=== PATIENT | male | born 1995 | race Caucasian/White ===

== ENCOUNTER 2017-08-24 20:58 | Emergency (ER) | payer OTHER ==
--- NOTE | 2017-08-24 21:24 | EDM.PDOC ---
ED HPI GENERAL MEDICAL PROBLEM - General Chief Complaint: Skin Complaint Stated Complaint: FINGER PAIN Time Seen by Provider: 08/24/17 21:11 Source of Information: Reports: Patient History Limitations: Reports: No Limitations - History of Present Illness INITIAL COMMENTS - FREE TEXT/NARRATIVE: Patient is a 22-year-old male presents ED complaining of frostbite to the right third, fourth, and fifth finger. 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 This occurred at approximately 4:30 this afternoon. Has developed a few blisters noted in between the third and fourth and fourth and fifth fingers. Slight numbness along the lateral aspect of the ring finger. Minimal pain present. Full range of motion noted. No sensory deficits distally. Tetanus status up-to-date. No other complaints. Right Hand Pain Score (Numeric/FACES): 6 - Related Data Allergies Allergy/AdvReac Type Severity Reaction Status Date / Time No Known Allergies Allergy Verified 08/24/17 21:10 Home Meds: Home Meds . [No Known Home Meds] 08/24/17 [History] Past Medical History - Past Health History Medical/Surgical History: Denies Medical/Surgical History Social & Family History - Tobacco Use Smoking Status *Q: Never Smoker - Caffeine Use Caffeine Use: Reports: Coffee - Recreational Drug Use Recreational Drug Use: No ED ROS GENERAL - Review of Systems Review Of Systems: ROS reveals no pertinent complaints other than HPI. ED EXAM, SKIN/RASH Exam: See Below Exam Limited By: No Limitations General Appearance: Alert, WD/WN, No Apparent Distress Ears: Hearing Grossly Normal Nose: Normal Inspection Throat/Mouth: Normal Voice, No Airway Compromise Neck: Normal Inspection, Supple Respiratory/Chest: No Respiratory Distress, No Accessory Muscle Use Cardiovascular: Normal Peripheral Pulses, Regular Rate, Rhythm Peripheral Pulses: 4+: Radial (R) Extremities: Other (Few blisters between the 3rd-4th and 4-5th fingers. Minimal pain present. Slight numbness along the lateral proximal border of the 4th finger. No findings concerning for infection. No sensory/motor deficits distally. ) Neurological: Alert, Oriented, Normal Cognition, No Motor/Sensory Deficits Psychiatric: Normal Affect, Normal Mood Skin: Warm, Dry Course - Vital Signs Last Recorded V/S: Last Vital Signs Temp 99.0 F 08/24/17 21:06 Pulse 120 H 08/24/17 21:06 Resp 18 08/24/17 21:06 BP 128/83 08/24/17 21:06 Pulse Ox 99 08/24/17 21:06 - Re-Assessments/Exams Free Text/Narrative Re-Assessment/Exam: Patient has frostbite injury noted in between the third, fourth, fourth, and fifth fingers. Few small blisters present. Only faint numbness noted to the lateral aspect of the right ring finger. Otherwise no sensory motor deficits distally. No other complaints. Tetanus status up-to-date. Will have nursing staff apply a heavy coat of bacitracin. I have discussed wound care instructions with the patient. He had no further questions. Return precautions discussed with him as well. Discharge instructions as documented. Departure - Departure Time of Disposition: 21:24 Disposition: Home, Self-Care 01 Condition: Good Clinical Impression: Superficial frostbite of finger of right hand Qualifiers: Encounter type: initial encounter Qualified Code(s): T33.531A - Superficial frostbite of right finger(s), initial encounter - Discharge Information Instructions: Frostbite Referrals: PCP,None [Primary Care Provider] - Forms: ED Department Discharge, ED Return to Work/School Form Additional Instructions: Cleanse site twice daily with soap and water, pat dry, reapply Triple Antibiotic ointment, and dressing. Leave blisters intact until they pop on their own. Thereafter ensure the skin is debrided away. Keep area clean and dry. Follow-up with a primary care provider in the next week for reevaluation. Return to the ED if you develop any new or worsening symptoms.
== END 2017-08-24 21:38 | disposition home or self-care (01) ==
LOC: JD.ED 20:58
DX: T33.531A Superficial frostbite of right finger(s), initial encounter (principal); X31.XXXA Exposure to excessive natural cold, initial encounter
CPT/HCPCS: 99283